=== PATIENT | male | born 1950 | race Caucasian/White ===

== ENCOUNTER → 2019-03-20 | Emergency (ER) | payer OTHER ==
[~2019-03-20] VITALS: Ht 175.3 cm; Wt 64.4 kg
[~2019-03-20] MED LIST: COZAAR100 MG; DOXAZOSIN MESYLA2 MG; GLIMEPIRIDE4 MG; HYZAAR 100/25 T1 TAB; METFORMIN HCL500 MG
== END | disposition home or self-care (01) ==
LOC: ER 15:11
DX: M54.2 Cervicalgia (principal); M62.838 Other muscle spasm

== ENCOUNTER 2024-09-25 12:06 | Emergency (ER) | payer OTHER ==
[~2024-09-25] VITALS: Ht 180.3 cm; Wt 52.2 kg
[2024-09-25] MEDS ORDERED: CEFTRIAXONE SODIUM 1,000 MG VIAL IM STA (13:22)
[2024-09-25] MEDS ORDERED: KETOROLAC TROMETHAMINE 15 MG VIAL IM STA (13:22)
[2024-09-25] MEDS ORDERED: BUDESONIDE 0.5 MG/2 ML AMPUL.NEB IH STA (13:26)
[2024-09-25] MEDS ORDERED: IPRATROPIUM BROMIDE 0.5 MG/2.5 ML AMPUL.NEB IH STA (13:26)
[2024-09-25 14:01] LABS: HEMATOCRIT 30.5 % (39.0-48.0); HEMOGLOBIN 10.1 g/dL (13-16.00); MEAN CORPUSCULAR HEMOGLOBIN 33.8 pg (27.00-32.0); MEAN CORPUSCULAR HGB CONC 33.2 g/dl (32.0-36.0); PLATELET COUNT 419 K/uL (150-450); RED BLOOD COUNT 2.99 M/uL (4.00-6.00); RED CELL DISTRIBUTION WIDTH 13.2 % (11.5-14.5)
[2024-09-25 14:18] LABS: CALCIUM 9.3 mg/dL (8.5-10.1); CREATININE SERUM 1.67 mg/dL (0.70-1.30); GFR 40.2
[2024-09-25 14:27] LABS: POTASSIUM 6.19 mEq/L (3.5-5.1)
[2024-09-25] MEDS ORDERED: DEXTROSE 50 % IN WATER 0.5 G/ML VIAL IV STA ×2 (14:51→16:43)
[2024-09-25] MEDS ORDERED: CALCIUM GLUCONATE 100 MG/ML VIAL IV STA (14:51)
[2024-09-25] MEDS ORDERED: 0.9 % SODIUM CHLORIDE 500 ML IV STA (14:52)
[2024-09-25] MEDS ORDERED: INSULIN REGULAR, HUMAN 1,000 UNIT/10 ML UNITS IV STA (14:52)
[2024-09-25] MEDS ORDERED: INSULIN REGULAR, HUMAN 1,000 UNIT/10 ML UNITS SUBCUTANEO STA (16:24)
[2024-09-25 19:36] LABS: CALCIUM 9.5 mg/dL (8.5-10.1); CREATININE SERUM 1.6 mg/dL (0.70-1.30); GFR 42.24; POTASSIUM 5.16 mEq/L (3.5-5.1)
== END 2024-09-25 20:43 | disposition home or self-care (01) ==
LOC: ER 12:08
PROVIDERS: General Practice
DX: J06.9 Acute upper respiratory infection, unspecified (principal); M62.830 Muscle spasm of back; E87.5 Hyperkalemia; E11.9 Type 2 diabetes mellitus without complications; Z79.4 Long term (current) use of insulin; Z20.822 Contact with and (suspected) exposure to COVID-19
CPT/HCPCS: 36415; 94640; 96365; 96372; 99284; J0696; J1885; J3490

== ENCOUNTER 2024-10-17 20:39 | Emergency (ER) | payer OTHER ==
[~2024-10-17] VITALS: Ht 172.7 cm; Wt 59.9 kg
== END 2024-10-17 23:29 ==
LOC: ER 20:39
DX: M79.604 Pain in right leg (principal); I10 Essential (primary) hypertension; E11.9 Type 2 diabetes mellitus without complications; Z79.84 Long term (current) use of oral hypoglycemic drugs; Z88.6 Allergy status to analgesic agent

== ENCOUNTER 2024-12-11 10:53 | Inpatient (IN) | payer OTHER ==
[~2024-12-11] VITALS: Ht 175.3 cm; Wt 77.1 kg
[2024-12-11] MEDS ORDERED: VALSARTAN80 MG (10:57)
[2024-12-11] MEDS ORDERED: ATORVASTATIN CA20 MG (10:58)
[2024-12-11] MEDS ORDERED: RAMIPRIL10 MG (10:58)
[2024-12-11 11:43] LABS: HEMATOCRIT 26.5 % (39.0-48.0); MEAN CELL VOLUME 99.8 fL (80.0-100.00); MEAN CORPUSCULAR HGB CONC 33.5 g/dl (32.0-36.0); PLATELET COUNT 237 K/uL (150-450); RED BLOOD COUNT 2.65 M/uL (4.00-6.00)
[2024-12-11 11:45] LABS: HEMOGLOBIN 8.9 g/dL (13-16.00); MEAN CORPUSCULAR HEMOGLOBIN 33.5 pg (27.00-32.0); RED CELL DISTRIBUTION WIDTH 16.6 % (11.5-14.5)
[2024-12-11 12:03] LABS: ALBUMIN 3.4 gm/dL (3.4-5.0); BILIRUBIN TOTAL 0.4 mg/dL (0.3-1.2); CALCIUM 9.7 mg/dL (8.5-10.1); CREATININE SERUM 1.04 mg/dL (0.70-1.30); GFR 69.43; GLOBULINA 4.6 G/DL (2.4-3.5); POTASSIUM 4.88 mEq/L (3.5-5.1)
[2024-12-11] MEDS ORDERED: TICAGRELOR 90 MG TABLET PO ONE (12:15)
[2024-12-11] MEDS ORDERED: ASPIRIN 325 MG TABLET.EC PO ONE ×2 (12:15→12:41)
[2024-12-11] MEDS ORDERED: ENOXAPARIN SODIUM 80 MG/0.8 ML SYRINGE SUBCUTANEO ONE ×2 (12:30→12:42)
[2024-12-11] MEDS ORDERED: NITROGLYCERIN IN 5 % DEXTROSE 50 MG/250 ML BOTTLE IV ONE ×2 (12:30→12:42)
[2024-12-11 13:38] LABS: PROTHROMBIN TIME 11.9 SECONDS (9.0-11.5)
[2024-12-11 13:44] LABS: PARTIAL THROMBOPLASTIN TIME < 20.0 SECONDS (22.0-34.0)
[2024-12-11 16:08] LABS: PH,URINE 6.5 (5.0-8.0); URINE APPEARANCE Clear; URINE BILIRRUBIN Negative (NEGATIVE); URINE BLOOD Negative; URINE COLOR Yellow; URINE GLUCOSE Negative (NEGATIVE); URINE KETONE Trace (NEGATIVE); URINE LEUKOCYTE Negative; URINE NITRATE Negative; URINE PROTEIN Negative (NEGATIVE); URINE UROBILINOGEN 0.2 E.U./dl
[2024-12-11 16:12] LABS: URINE EPITHELIAL CELLS 2.8 uL (0.0-38.8); URINE RBC 2.7 uL (0.0-20.8)
[2024-12-11 16:32] LABS: URINE BACTERIA 2.4 uL (0.0-1933); URINE CAST 0.14 uL (0.0-1.40); URINE WBC 1.4 uL (0.0-23.2)
[2024-12-11] MEDS ORDERED: ACETAMINOPHEN 325 MG TABLET PO PRN (20:45)
[2024-12-11] MEDS ORDERED: ONDANSETRON HCL 4 MG in 0.9 % SODIUM CHLORIDE 50 ML IV PRN (20:45)
[2024-12-11] MEDS ORDERED: 0.9 % SODIUM CHLORIDE 1,000 ML IV SCH (20:45)
[2024-12-11] MEDS ORDERED: NITROGLYCERIN IN 5 % DEXTROSE 50 MG/250 ML BOTTLE IV SCH (21:00)
[2024-12-12] VITALS (14 sets, daily range): BP systolic 96–126; BP diastolic 54–73; O2SAT 90–100
[2024-12-12] MEDS ORDERED: DEXTROSE 50 % IN WATER 0.5 G/ML DISP.SYRIN IV PRN (00:15)
[2024-12-12] MEDS ORDERED: INSULIN LISPRO 1,000 UNIT/10 ML UNITS SUBCUTANEO PRN (00:15)
[2024-12-12] MEDS ORDERED: AZITHROMYCIN 500 MG VIAL IV ONE (08:25)
[2024-12-12] MEDS ORDERED: CEFTRIAXONE SODIUM 2,000 MG in DEXTROSE 5 % IN WATER 100 ML IV SCH (09:00)
[2024-12-12] MEDS ORDERED: ASPIRIN 81 MG TAB.CHEW PO SCH (09:00)
[2024-12-12] MEDS ORDERED: TICAGRELOR 90 MG TABLET PO SCH (09:00)
[2024-12-12] MEDS ORDERED: LOSARTAN POTASSIUM 25 MG TABLET PO SCH (09:00)
[2024-12-12] MEDS ORDERED: LOSARTAN/HYDROCHLOROTHIAZIDE 1 UDTAB TABLET PO SCH (09:00)
[2024-12-12] MEDS ORDERED: ENOXAPARIN SODIUM 80 MG/0.8 ML SYRINGE SUBCUTANEO SCH (09:00)
[2024-12-12] MEDS ORDERED: AZITHROMYCIN 500 MG VIAL IV SCH (09:00)
[2024-12-12 09:39] LABS: CHOL HDL RATIO 2.7 (0-5.0)
[2024-12-12 18:12] LABS: ALBUMIN 3.1 gm/dL (3.4-5.0); BILIRUBIN TOTAL 0.26 mg/dL (0.3-1.2); CALCIUM 9.4 mg/dL (8.5-10.1); CREATININE SERUM 0.8 mg/dL (0.70-1.30); GFR 93.99; GLOBULINA 4.3 G/DL (2.4-3.5); POTASSIUM 5.63 mEq/L (3.5-5.1); TOTAL PROTEIN 7.4 gm/dL (6.4-8.2)
[2024-12-13] VITALS (8 sets, daily range): BP systolic 133–153; BP diastolic 61–76; O2SAT 99–100
[2024-12-13 07:01] LABS: HEMATOCRIT 29.6 % (39.0-48.0); HEMOGLOBIN 9.6 g/dL (13-16.00); MEAN CELL VOLUME 100.3 fL (80.0-100.00); MEAN CORPUSCULAR HEMOGLOBIN 32.5 pg (27.00-32.0); MEAN CORPUSCULAR HGB CONC 32.4 g/dl (32.0-36.0); PLATELET COUNT 241 K/uL (150-450); RED BLOOD COUNT 2.95 M/uL (4.00-6.00); RED CELL DISTRIBUTION WIDTH 16.6 % (11.5-14.5)
[2024-12-13] MEDS ORDERED: AZITHROMYCIN 500 MG VIAL IV ONE (07:18)
[2024-12-13 07:47] LABS: CALCIUM 8.8 mg/dL (8.5-10.1); CREATININE SERUM 0.81 mg/dL (0.70-1.30); GFR 92.65; POTASSIUM 4.83 mEq/L (3.5-5.1)
[2024-12-13] MEDS ORDERED: SODIUM CHLORIDE FOR INHALATION 1 VIAL.NEB IH NR (11:00)
[2024-12-13] MEDS ORDERED: SODIUM CHLORIDE FOR INHALATION 1 VIAL.NEB IH SCH (21:00)
[2024-12-14] VITALS (9 sets, daily range): BP systolic 118–134; BP diastolic 50–72; O2SAT 95–100
[2024-12-15 01:47] VITALS: BP 125/56; O2SAT 100
[2024-12-15 06:15] VITALS: O2SAT 97
[2024-12-15] MEDS ORDERED: AZITHROMYCIN 500 MG VIAL IV ONE (08:58)
[2024-12-15 09:47] VITALS: BP 127/60; O2SAT 98
[2024-12-15 17:39] VITALS: BP 135/60
[2024-12-16 03:55] VITALS: BP 140/63
[2024-12-16] MEDS ORDERED: KETOROLAC TROMETHAMINE 30 MG VIAL IM STA (08:08)
[2024-12-16] MEDS ORDERED: AZITHROMYCIN 500 MG VIAL IV ONE (08:49)
[2024-12-16 09:30] VITALS: BP 151/66
[2024-12-16] MEDS ORDERED: ORPHENADRINE CITRATE 30 MG/ML AMPUL IV STA (10:10)
[2024-12-16 12:38] LABS: quan ag 0.05 IU/mL (.); quan ag 0.26 IU/mL (.); quan mito 2.98 IU/mL (.); quant nil 0.23 IU/mL (.)
[2024-12-16 12:38] LABS: afb smear Negative (.); afb spe proc Concentration (.)
[2024-12-16 18:15] VITALS: BP 149/77
[2024-12-16] MEDS ORDERED: ORPHENADRINE CITRATE 30 MG/ML AMPUL IV SCH (21:00)
[2024-12-17 02:38] VITALS: BP 138/62; O2SAT 100
[2024-12-17] MEDS ORDERED: AZITHROMYCIN 500 MG VIAL IV ONE (08:26)
[2024-12-17 09:30] VITALS: BP 140/76; O2SAT 99
[2024-12-17] MEDS ORDERED: TUBERCULIN,PURIF.PROT.DERIV. 10 SKIN.TEST SKIN.TEST ID NR (12:00)
[2024-12-17 17:52] VITALS: BP 144/78; O2SAT 99
[2024-12-17 20:17] LABS: ALBUMIN 2.6 gm/dL (3.4-5.0); BILIRUBIN TOTAL 0.49 mg/dL (0.3-1.2); CALCIUM 8.8 mg/dL (8.5-10.1); CREATININE SERUM 0.84 mg/dL (0.70-1.30); GFR 88.84; GLOBULINA 4.2 G/DL (2.4-3.5); POTASSIUM 4.68 mEq/L (3.5-5.1); TOTAL PROTEIN 6.8 gm/dL (6.4-8.2)
[2024-12-17] MEDS ORDERED: SODIUM CHLORIDE FOR INHALATION 1 VIAL.NEB IH SCH (21:00)
[2024-12-18 01:59] VITALS: BP 135/69
[2024-12-18] MEDS ORDERED: AZITHROMYCIN 500 MG VIAL IV ONE (08:29)
[2024-12-18 09:38] VITALS: BP 128/69; O2SAT 97
[2024-12-18 11:26] LABS: HEMATOCRIT 25.2 % (39.0-48.0); MEAN CELL VOLUME 98.1 fL (80.0-100.00); MEAN CORPUSCULAR HEMOGLOBIN 34.2 pg (27.00-32.0); MEAN CORPUSCULAR HGB CONC 34.8 g/dl (32.0-36.0); PLATELET COUNT 217 K/uL (150-450); RED BLOOD COUNT 2.57 M/uL (4.00-6.00); RED CELL DISTRIBUTION WIDTH 16.1 % (11.5-14.5)
[2024-12-18 11:27] LABS: HEMOGLOBIN 8.8 g/dL (13-16.00)
[2024-12-18] MEDS ORDERED: SODIUM CHLORIDE FOR INHALATION 1 VIAL.NEB IH SCH (17:00)
[2024-12-18 17:57] VITALS: BP 156/65
[2024-12-18 20:08] LABS: afb smear Negative (.); afb spe proc Concentration (.)
[2024-12-18 20:08] LABS: afb smear Negative (.); afb spe proc Concentration (.)
[2024-12-19 02:10] VITALS: BP 135/64
[2024-12-19 09:47] VITALS: BP 136/65; O2SAT 96
[2024-12-19 10:52] LABS: MEAN CELL VOLUME 97.4 fL (80.0-100.00); MEAN CORPUSCULAR HGB CONC 34.4 g/dl (32.0-36.0); PLATELET COUNT 212 K/uL (150-450); RED BLOOD COUNT 2.33 M/uL (4.00-6.00); RED CELL DISTRIBUTION WIDTH 16.3 % (11.5-14.5)
[2024-12-19 11:05] LABS: HEMATOCRIT 22.7 % (39.0-48.0); MEAN CORPUSCULAR HEMOGLOBIN 33.4 pg (27.00-32.0)
[2024-12-19 11:06] LABS: HEMOGLOBIN 7.8 g/dL (13-16.00)
[2024-12-19 18:30] VITALS: BP 160/60
[2024-12-19] MEDS ORDERED: TRAMADOL HCL 50 MG TABLET PO ONE (19:00)
[2024-12-20 02:02] VITALS: BP 142/52
[2024-12-20 06:22] LABS: HEMATOCRIT 27.3 % (39.0-48.0); MEAN CELL VOLUME 94.1 fL (80.0-100.00); MEAN CORPUSCULAR HGB CONC 34.9 g/dl (32.0-36.0); PLATELET COUNT 221 K/uL (150-450); RED CELL DISTRIBUTION WIDTH 16.3 % (11.5-14.5)
[2024-12-20 06:23] LABS: HEMOGLOBIN 9.5 g/dL (13-16.00); MEAN CORPUSCULAR HEMOGLOBIN 32.7 pg (27.00-32.0)
[2024-12-20 09:25] VITALS: BP 137/75; O2SAT 96
[2024-12-20 18:06] VITALS: BP 151/75; O2SAT 97
[2024-12-20 20:53] LABS: HEMATOCRIT 26.9 % (39.0-48.0); HEMOGLOBIN 9.3 g/dL (13-16.00); MEAN CELL VOLUME 94.9 fL (80.0-100.00); MEAN CORPUSCULAR HEMOGLOBIN 32.8 pg (27.00-32.0); MEAN CORPUSCULAR HGB CONC 34.6 g/dl (32.0-36.0); PLATELET COUNT 235 K/uL (150-450); RED BLOOD COUNT 2.83 M/uL (4.00-6.00); RED CELL DISTRIBUTION WIDTH 16.7 % (11.5-14.5)
[2024-12-20 21:32] LABS: ALBUMIN 2.4 gm/dL (3.4-5.0); BILIRUBIN TOTAL 0.68 mg/dL (0.3-1.2); CALCIUM 8.8 mg/dL (8.5-10.1); CREATININE SERUM 0.8 mg/dL (0.70-1.30); GFR 93.99; GLOBULINA 3.8 G/DL (2.4-3.5); TOTAL PROTEIN 6.2 gm/dL (6.4-8.2)
[2024-12-21 00:49] VITALS: BP 153/66; O2SAT 99
[2024-12-21 08:35] VITALS: BP 147/68
[2024-12-21] MEDS ORDERED: HALOPERIDOL LACTATE 5 MG/ML AMPUL IM PRN (08:45)
[2024-12-21 17:59] VITALS: BP 144/51
[2024-12-21] MEDS ORDERED: METRONIDAZOLE/SODIUM CHLORIDE 100 ML IV SCH (22:26)
[2024-12-21] MEDS ORDERED: CEFTRIAXONE SODIUM 2,000 MG in 0.9 % SODIUM CHLORIDE 100 ML IV SCH (22:26)
[2024-12-22 02:56] VITALS: BP 144/70
[2024-12-22 08:31] VITALS: BP 160/80
[2024-12-22 17:40] VITALS: BP 118/80; O2SAT 98
[2024-12-23 02:29] VITALS: BP 145/72; O2SAT 98
[2024-12-23] MEDS ORDERED: ACETAMINOPHEN 500 MG GEL..CAP PO PRN (19:00)
[2024-12-23 21:01] VITALS: BP 149/57
[2024-12-24 00:48] VITALS: BP 118/66; O2SAT 99
[2024-12-24 09:10] VITALS: BP 127/71; O2SAT 98
[2024-12-24] MEDS ORDERED: MEPERIDINE HCL/PF 25 MG/ML VIAL IM PRN (11:00)
[2024-12-24] MEDS ORDERED: LACTOBACILLUS ACIDOPHILUS 1 CAP CAP PO SCH (12:21)
[2024-12-24 18:40] VITALS: BP 142/66
[2024-12-25 01:32] VITALS: BP 155/65; O2SAT 97
[2024-12-25 06:34] LABS: HEMATOCRIT 27.1 % (39.0-48.0); HEMOGLOBIN 9.4 g/dL (13-16.00); MEAN CELL VOLUME 95.1 fL (80.0-100.00); MEAN CORPUSCULAR HEMOGLOBIN 33.1 pg (27.00-32.0); MEAN CORPUSCULAR HGB CONC 34.8 g/dl (32.0-36.0); PLATELET COUNT 341 K/uL (150-450); RED BLOOD COUNT 2.85 M/uL (4.00-6.00); RED CELL DISTRIBUTION WIDTH 16.1 % (11.5-14.5)
[2024-12-25 07:41] LABS: ERYTHROCYTE SEDIMENTATION RATE 102 mm/hr
[2024-12-25 08:23] VITALS: BP 132/68; O2SAT 100
[2024-12-25] MEDS ORDERED: TOBRAMYCIN/DEXAMETHASONE 20 DR/ML DROPS OP SCH (13:00)
[2024-12-25 17:51] VITALS: BP 137/76; O2SAT 99
[2024-12-26 00:33] VITALS: BP 140/80
[2024-12-26 13:21] VITALS: BP 139/75
[2024-12-26 15:05] VITALS: BP 136/71; O2SAT 99
[2024-12-27 00:41] VITALS: BP 144/76; O2SAT 100
[2024-12-27 08:39] VITALS: BP 139/73; O2SAT 97
[2024-12-27 16:20] VITALS: BP 144/69; O2SAT 99
[2024-12-27] MEDS ORDERED: METROnidazole 500 MG TABLET PO SCH (17:00)
[2024-12-27 21:16] LABS: HEMOGLOBIN 9.4 g/dL (13-16.00); MEAN CORPUSCULAR HGB CONC 33.7 g/dl (32.0-36.0); PLATELET COUNT 418 K/uL (150-450); RED BLOOD COUNT 2.95 M/uL (4.00-6.00); RED CELL DISTRIBUTION WIDTH 16.7 % (11.5-14.5)
[2024-12-27 21:23] LABS: ALBUMIN 2.4 gm/dL (3.4-5.0); BILIRUBIN TOTAL 0.27 mg/dL (0.3-1.2); CALCIUM 8.6 mg/dL (8.5-10.1); CREATININE SERUM 0.73 mg/dL (0.70-1.30); GFR 104.46; GLOBULINA 3.7 G/DL (2.4-3.5); POTASSIUM 4.79 mEq/L (3.5-5.1); TOTAL PROTEIN 6.1 gm/dL (6.4-8.2)
[2024-12-28 00:36] VITALS: BP 143/74; O2SAT 97
[2024-12-28 09:02] VITALS: BP 156/74; O2SAT 99
[2024-12-28 17:00] VITALS: BP 136/74; O2SAT 98
[2024-12-29 01:25] VITALS: BP 145/74
[2024-12-29 08:30] VITALS: BP 141/72; O2SAT 99
[2024-12-29 16:52] VITALS: BP 140/75; O2SAT 97
[2024-12-30 01:56] VITALS: BP 137/69
[2024-12-30 08:57] VITALS: BP 153/82
[2024-12-30 17:33] VITALS: BP 137/71
[2024-12-31 08:45] VITALS: BP 152/73
== END 2024-12-31 17:03 | disposition home or self-care (01) | DRG 280 ==
LOC: ER 10:53 → SEC-K 22:05 → SURH 22:05 → MEDJ 22:05 → SURH 12-12 02:15 → MEDJ 12-13 12:09 → MEDI 12-23 08:28 → O/R 12-23 10:52 → MEDI 12-23 10:53
PROVIDERS: General Practice; Internal Medicine; Student in an Organized Health Care Education/Training Program; ADMIT Internal Medicine; ATTEND Internal Medicine
PROC: B24BYZZ Ultrasonography of Heart with Aorta using Other Contrast (ICD-10-PCS; principal; 2024-12-11)
PROC: BW24YZZ Computerized Tomography (CT Scan) of Chest and Abdomen using Other Contrast (ICD-10-PCS; 2024-12-12)
PROC: 4A12X4Z Monitoring of Cardiac Electrical Activity, External Approach (ICD-10-PCS; 2024-12-12)
PROC: 30233N1 Transfusion of Nonautologous Red Blood Cells into Peripheral Vein, Percutaneous Approach (ICD-10-PCS; 2024-12-19)
PROC: BW24ZZZ Computerized Tomography (CT Scan) of Chest and Abdomen (ICD-10-PCS; 2024-12-20)
PROC: BW28ZZZ Computerized Tomography (CT Scan) of Head (ICD-10-PCS; 2024-12-21)
PROC: B030ZZZ Magnetic Resonance Imaging (MRI) of Brain (ICD-10-PCS; 2024-12-27)
PROC: BW24YZZ Computerized Tomography (CT Scan) of Chest and Abdomen using Other Contrast (ICD-10-PCS; 2024-12-29)
DX: I21.4 Non-ST elevation (NSTEMI) myocardial infarction (principal); G93.41 Metabolic encephalopathy; J18.9 Pneumonia, unspecified organism; J85.0 Gangrene and necrosis of lung; A15.0 Tuberculosis of lung; E87.1 Hypo-osmolality and hyponatremia; K55.1 Chronic vascular disorders of intestine; I10 Essential (primary) hypertension; E11.9 Type 2 diabetes mellitus without complications; Z79.4 Long term (current) use of insulin; I24.9 Acute ischemic heart disease, unspecified
CPT/HCPCS: 70553

== ENCOUNTER 2025-03-11 14:13 | Inpatient (IN) | payer OTHER ==
[~2025-03-11] VITALS: Ht 175.3 cm; Wt 59.9 kg
[~2025-03-11 14:13] MED LIST changes: +ATORVASTATIN CA20 MG; +RAMIPRIL10 MG; +VALSARTAN80 MG
--- NOTE | 2025-03-11 15:05 | NUR ---
SE RECIBE PACIENTE ALERTA X3. PACIENTE REFIERE TENER HEMOGLOBINA BAJA Y TOS SANGRIENTA. SE LE PREGUNTA A PACIENTE SI TIENE DOLOR DE PECHO Y EL MISMO REFIERE NO TENER DOLOR DE PECHO. SE LE MEGAN S/V AL PACIENTE Y SE UBICA EL MISMO EN PASILLO
[2025-03-11] MEDS ORDERED: 0.9 % SODIUM CHLORIDE 500 ML IV ONE (15:45)
--- NOTE | 2025-03-11 16:02 | NUR ---
SE ORIENTA A PACIENTE SOBRE [place] MEDICO, REFIERE ENTENDER. SE REALIZAN MUESTRAS DE LABORATORIO BAJO MEDIDAS ASEPTICAS. SE ADMINISTRA IV'S KATE ORDEN MEDICA. SE COORDINA CT. SE NOTIFICA ABG A . PACIENTE MANEJADA POR .
[2025-03-11 16:22] LABS: HEMATOCRIT 26.7 % (39.0-48.0); MEAN CELL VOLUME 102.4 fL (80.0-100.00); MEAN CORPUSCULAR HEMOGLOBIN 34.5 pg (27.00-32.0); MEAN CORPUSCULAR HGB CONC 33.7 g/dl (32.0-36.0); PLATELET COUNT 208 K/uL (150-450); RED BLOOD COUNT 2.61 M/uL (4.00-6.00); RED CELL DISTRIBUTION WIDTH 14.7 % (11.5-14.5)
[2025-03-11 16:38] LABS: INR 1.09; PARTIAL THROMBOPLASTIN TIME 22.6 SECONDS (22.0-34.0); PROTHROMBIN TIME 11.8 SECONDS (9.0-11.5)
[2025-03-11 16:43] LABS: ALBUMIN 3.3 gm/dL (3.4-5.0); BILIRUBIN TOTAL 0.28 mg/dL (0.3-1.2); CALCIUM 9.7 mg/dL (8.5-10.1); CREATININE SERUM 1.07 mg/dL (0.70-1.30); GFR 67.01; GLOBULINA 4.3 G/DL (2.4-3.5); POTASSIUM 4.77 mEq/L (3.5-5.1); TOTAL PROTEIN 7.6 gm/dL (6.4-8.2)
[2025-03-11 17:00] LABS: URINE APPEARANCE Clear; URINE BILIRRUBIN Negative (NEGATIVE); URINE BLOOD Negative; URINE COLOR Yellow; URINE KETONE Negative (NEGATIVE); URINE LEUKOCYTE Negative; URINE NITRATE Negative; URINE PROTEIN Negative (NEGATIVE); URINE UROBILINOGEN 0.2 E.U./dl
[2025-03-11 17:04] LABS: URINE EPITHELIAL CELLS 1.7 uL (0.0-38.8); URINE RBC 6.3 uL (0.0-20.8)
[2025-03-11 17:29] LABS: URINE BACTERIA 2.4 uL (0.0-1933); URINE GLUCOSE 250 MG/DL (NEGATIVE); URINE WBC 0.9 uL (0.0-23.2)
[2025-03-11 17:43] LABS: ABG PH 7.478 (7.35-7.45); ABG pCO2 33.3 mmHg (35-45); BASE EXCESS 1.3 mmol/l; BICARBONATE 24.2 mmol/l (23-25); SaO2 98.6 %; Tco2 25.2 mmol/l
[2025-03-11 17:46] LABS: allen test SATISFACTORY; mode ROOM AIR; o2 21 %; puncture site RADIAL RIGHT
[2025-03-11 19:28] LABS: COVID-19 AG NEGATIVE (NEGATIVE); INFLUENZA A AG NEGATIVE (NEGATIVE)
[2025-03-11] MEDS ORDERED: ACETAMINOPHEN 500 MG GEL..CAP PO PRN (20:45)
[2025-03-11] MEDS ORDERED: ONDANSETRON HCL 4 MG in 0.9 % SODIUM CHLORIDE 50 ML IV PRN (20:45)
[2025-03-11] MEDS ORDERED: PANTOPRAZOLE SODIUM 40 MG/VIAL VIAL IV SCH (20:45)
[2025-03-11] MEDS ORDERED: VANCOMYCIN HCL 1,000 MG VIAL IV SCH (20:45)
[2025-03-11] MEDS ORDERED: MEROPENEM 500 MG/VIAL VIAL IV SCH (20:45)
[2025-03-11] MEDS ORDERED: IPRATROPIUM BROMIDE 0.5 MG/2.5 ML AMPUL.NEB IH SCH (20:49)
[2025-03-11] MEDS ORDERED: INSULIN LISPRO 1,000 UNIT/10 ML UNITS SUBCUTANEO PRN (21:00)
[2025-03-11] MEDS ORDERED: 0.9 % SODIUM CHLORIDE 1,000 ML IV SCH (21:00)
[2025-03-11] MEDS ORDERED: DEXTROSE 50 % IN WATER 0.5 G/ML DISP.SYRIN IV PRN (21:00)
[2025-03-11] MEDS ORDERED: CODEINE/PROMETHAZINE HCL 1 ML ML PO ONE (21:00)
[2025-03-11] MEDS ORDERED: DEXAMETHASONE SODIUM PHOSPHATE 4 MG/ML VIAL IV ONE (21:00)
[2025-03-12 04:00] VITALS: BP 132/77; O2SAT 99
[2025-03-12 08:00] VITALS: BP 131/68; O2SAT 98
[2025-03-12] MEDS ORDERED: LOSARTAN POTASSIUM 100 MG TABLET PO SCH (09:00)
[2025-03-12] MEDS ORDERED: ATORVASTATIN CALCIUM 20 MG TABLET PO SCH (09:00)
[2025-03-12] MEDS ORDERED: AZITHROMYCIN 500 MG TABLET PO NR (16:00)
[2025-03-12] MEDS ORDERED: CEFTRIAXONE SODIUM 2,000 MG in 0.9 % SODIUM CHLORIDE 100 ML IV SCH (17:00)
[2025-03-12 21:00] VITALS: BP 123/57; O2SAT 98
[2025-03-13 03:53] VITALS: BP 157/69; O2SAT 98
[2025-03-13] MEDS ORDERED: AZITHROMYCIN 250 MG TABLET PO SCH (09:00)
[2025-03-13 09:14] VITALS: BP 144/68; O2SAT 97
[2025-03-13 18:01] VITALS: BP 128/63; O2SAT 90
[2025-03-14 03:48] VITALS: BP 135/64; O2SAT 97
[2025-03-14 06:32] LABS: HEMATOCRIT 29.1 % (39.0-48.0); MEAN CELL VOLUME 101.6 fL (80.0-100.00); MEAN CORPUSCULAR HGB CONC 34.5 g/dl (32.0-36.0); PLATELET COUNT 215 K/uL (150-450); RED BLOOD COUNT 2.87 M/uL (4.00-6.00); RED CELL DISTRIBUTION WIDTH 14.3 % (11.5-14.5)
[2025-03-14 06:54] LABS: CALCIUM 9.5 mg/dL (8.5-10.1); CREATININE SERUM 0.82 mg/dL (0.70-1.30); GFR 91.1; POTASSIUM 4.48 mEq/L (3.5-5.1)
[2025-03-14 10:15] VITALS: BP 153/71; O2SAT 99
[2025-03-14 18:32] VITALS: BP 144/80
[2025-03-15 01:35] VITALS: BP 157/69; O2SAT 97
[2025-03-15 10:49] VITALS: BP 140/71; O2SAT 97
[2025-03-15] MEDS ORDERED: CLOTRIMAZOLE 15 GM TUBE TOP SCH (17:00)
[2025-03-15 17:01] VITALS: BP 149/67; O2SAT 98
[2025-03-15] MEDS ORDERED: SODIUM CL 0.9% 100 ML IV.SOLN IV ONE (18:32)
[2025-03-16 02:55] VITALS: BP 155/83; O2SAT 95
[2025-03-16 10:03] VITALS: BP 133/72
[2025-03-16 18:06] VITALS: BP 143/73; O2SAT 97
[2025-03-17 02:21] VITALS: BP 147/77
[2025-03-17 09:24] VITALS: BP 134/78; O2SAT 99
[2025-03-17] MEDS ORDERED: DEXTROSE 50 % IN WATER 0.5 G/ML VIAL IV PRN (14:15)
[2025-03-17 17:48] VITALS: BP 169/74; O2SAT 97
[2025-03-18 08:02] VITALS: BP 128/56; O2SAT 96
[2025-03-18] MEDS ORDERED: ACETAMINOPHEN 500 MG GEL..CAP PO PRN (13:00)
[2025-03-18 17:38] VITALS: BP 152/90; O2SAT 97
[2025-03-18 19:06] LABS: afb smear Negative (.); afb spe proc Concentration (.)
[2025-03-18 22:15] VITALS: BP 131/69
[2025-03-19 00:41] VITALS: BP 131/76
[2025-03-19] MEDS ORDERED: INSULIN NPH HUM/REG INSULIN HM 1,000 UNIT/10 ML UNITS SUBCUTANEO SCH (08:00)
[2025-03-19 13:09] LABS: ASPERGILLUS FLAVUS Negative (Neg:<1:1); ASPERGILLUS FUMIGATUS Negative (Neg:<1:1); ASPERGILLUS NIGER Negative (Neg:<1:1)
[2025-03-19 15:51] LABS: HEMATOCRIT 25.2 % (39.0-48.0); MEAN CELL VOLUME 101.8 fL (80.0-100.00); MEAN CORPUSCULAR HGB CONC 34.3 g/dl (32.0-36.0); PLATELET COUNT 176 K/uL (150-450); RED BLOOD COUNT 2.48 M/uL (4.00-6.00); RED CELL DISTRIBUTION WIDTH 13.3 % (11.5-14.5)
[2025-03-19 16:09] LABS: HEMOGLOBIN 8.7 g/dL (13-16.00)
[2025-03-19 16:27] LABS: CALCIUM 8.8 mg/dL (8.5-10.1); CREATININE SERUM 0.78 mg/dL (0.70-1.30); GFR 96.51; POTASSIUM 4.19 mEq/L (3.5-5.1)
[2025-03-19 19:11] VITALS: BP 158/82; O2SAT 100
[2025-03-20 01:07] VITALS: BP 145/70; O2SAT 98
[2025-03-20 08:43] VITALS: BP 127/55
== END 2025-03-20 19:43 | disposition home or self-care (01) | DRG 178 ==
LOC: ER 14:14 → MEDI 21:13 → SEC-K 21:47 → SURG 03-12 11:10 → MEDJ 03-12 18:04
PROVIDERS: Emergency Medicine; General Practice; Internal Medicine Infectious Disease; Student in an Organized Health Care Education/Training Program; ADMIT Internal Medicine; ATTEND Internal Medicine
PROC: 8E0ZXY6 Isolation (ICD-10-PCS; principal; 2025-03-11)
PROC: BW24ZZZ Computerized Tomography (CT Scan) of Chest and Abdomen (ICD-10-PCS; 2025-03-11)
DX: J15.8 Pneumonia due to other specified bacteria (principal); B44.1 Other pulmonary aspergillosis; R04.2 Hemoptysis; J84.10 Pulmonary fibrosis, unspecified; D72.821 Monocytosis (symptomatic); I25.10 Atherosclerotic heart disease of native coronary artery without angina pectoris; I11.9 Hypertensive heart disease without heart failure; E11.9 Type 2 diabetes mellitus without complications; Z79.4 Long term (current) use of insulin